=== PATIENT | male | born 1950 | race Caucasian/White ===

== ENCOUNTER 2021-02-02 16:10 | Emergency (ER) | payer OTHER ==
[~2021-02-02] VITALS: Ht 167.6 cm; Wt 88.5 kg
[2021-02-02 21:49] VITALS: BP 150/62
== END 2021-02-02 20:55 ==
LOC: ER 16:10
PROVIDERS: Nurse Practitioner
DX: F91.9 Conduct disorder, unspecified (principal); Z20.822 Contact with and (suspected) exposure to COVID-19; F17.210 Nicotine dependence, cigarettes, uncomplicated; Z88.2 Allergy status to sulfonamides; Z88.8 Allergy status to other drugs, medicaments and biological substances

== ENCOUNTER 2021-02-07 12:49 | Inpatient (IN) | payer BC, OTHER ==
[~2021-02-07] VITALS: Ht 170.2 cm; Wt 84.6 kg
[2021-02-07] VITALS (34 sets, daily range): BP systolic 92–167; BP diastolic 39–110
[~2021-02-07 12:49] MED LIST: AMANTADINE 100100 MG PO; ATENOLOL 100MG100 MG PO; FLOMAX0.4 MG PO; FLONASE 0.05%50 MCG NASAL; FOLIC ACID1 MG PO; HYDRALAZINE 5050 MG PO; IRON325 M1 PO; LAMICTAL150 MG PO; LOPID600 MG PO; LOSARTAN POTAS100 MG PO; MULTI VITAMIN1 EACH PO; NORVASC10 MG PO; OLANZAPINE7.5 MG PO; TEMAZEPAM30 MG PO; TERAZOSIN HCL10 MG PO; ZYPREXA 5 MG TAB5 M1 PO
--- NOTE | 2021-02-07 19:32 | NUR ---
PT ARRIVED FROM [address] [place] [address] AT 1215 ACCOMPANIED BY NURSING AID, SECURITY AND CABIN WORKER. ON ARRIVAL PT ON FOUR POINT RESTRAINTS CONSTANTLY THRASHING IN BED. PT WAS PLACED IN SYSTEM AT 1250. SPOKE TO DR ORELLANA AT 1253 REGARDING PT'S CURRENT CONDITION AND ORDERS NEEDED. PT STARTED ON PRECEDEX GTT PER ORDER. AT BEDSIDE AT 1700 AND WAS ABLE TO PROVIDE SOME PAST MEDICAL HISTORY.
[2021-02-08] VITALS (40 sets, daily range): BP systolic 112–164; BP diastolic 50–96
[2021-02-08 03:23] LABS: CALCIUM 8.7 mg/dL (8.5-10.1); CREATININE 1.7 mg/dL (0.7-1.3); POTASSIUM 3.6 mmol/L (3.5-5.1)
[2021-02-08 03:26] LABS: HEMATOCRIT 32.3 % (42.0-52.0); MCH 31.8 pg (26.0-34.0); MCV 93.7 fL (80.0-100.0); RBC 3.44 mil/uL (4.50-6.00); RDW 14.1 % (10.5-14.5); WBC 8.4 thou/uL (4.0-11.0)
--- NOTE | 2021-02-08 05:57 | NUR ---
Patient making some progress towards outcome goals. Initially on 4 point soft restraints due to thrashing about in bed despite Precedex max at 1.4mcg/kg/hr., now down to bilarteral soft wrist restraints. Precedex titrated down to 0.5 mck/kg/hr from 1.4 mcg/kg/hr, with scheduled Haldol. Patient drowsy but responds to name and able to follow simple commands. Unaware of where he is, states he remembers not getting any sleep for several days. Kept NPO, oral cares done. IVfluids infusing, good urine output. Patient denies pain. Oxygenation optimal on room air. Vital signs and rhythm stable.
--- NOTE | 2021-02-08 19:30 | NUR ---
alert/oriented x 4, cooperative. precedex off and restraints discontinued at 0830. consumed lunch, fed self. had very large stool. intermittently drowsy, easily awakened. progressing.
[2021-02-09] VITALS (29 sets, daily range): BP systolic 147–192; BP diastolic 63–93
--- NOTE | 2021-02-09 03:32 | NUR ---
PT HAS BEEN CALM AND COOPERATIVE SO FAR ALL SHIFT. HE IS ABLE TO ANSWER ORIENTATION QUESTIONS. DENIES ANY PAIN. HE MAKES HIS NEEDS KNOWN APPROPRIATELY. PT HAS BEEN SLEEPING MOST OF THE NIGHT. RESPIRATIONS EVEN AND UNLABORED. VSS. AFEBRILE. OLIVERA TO DD WITH ADEQUATE URINE OUTPUT. FALL PRECAUTIONS IN PLACE. PROGRESSING TOWARD POC GOALS. WILL CONTINUE TO MONITOR FURTHER.
--- NOTE | 2021-02-09 11:07 | NUR ---
02-09-2021--1110--Text from Dr. Keating with info from Dr. Russ stating that "he looks good, ate well, stopping IVF and returning to some BP meds can DC today or as soon as possible. 02-09-2021--1115-Call to Eugene ([phone]) Her mailbox was full so I called Wanda the ([phone]) and spoke to Eugene. (Wanda is now oin [place] with daughter and son-in-law who is a geriatrics doctor. I told her what was gong on woth her dad (see previous note) and that he is ready for discharge. I explained if she calls me baclk woth facilities around her that have memory care units I can start sending information on the patient to them to see if we can get him accepted. She took my phone number and call me back with suggestions. I will call her back if I don't hear from her by 12:30 this date.
--- NOTE | 2021-02-09 12:55 | NUR ---
02-09-2021--1250--Call to Eugene. She put me on the phone to her . (Eugene was very distressed and crying.) Her gave me the names and numbers for several facilities in their area: [facility]--[phone] [facility]--[phone] [facility]--[phone] [facility]--[phone] He also wanted to know if I could fax the informatiom to the physician in his office who will be seeing the patient. Dr. Miranda--[phone]. I told him I would check woith my supervisor tank house to determine of this is acceptable.
--- NOTE | 2021-02-09 15:38 | NUR ---
02-09-2021--9520--Faxed information to all requested NH from [facility]'s. Information to Dr. Miranda (intended new PCP for Pérez who also is in [facility]'s practice will be sent DC orders when discharged.
--- NOTE | 2021-02-09 18:35 | NUR ---
ASSUMED PATIENT CARE AT 0700. A/O X3. CALM. GOOD APPATITE. NOTED PATIENT BP ELEVATED. MEDS GIVEN. SLOWLY TOWARDS POC GOALS.
[2021-02-10] VITALS (8 sets, daily range): BP systolic 145–178; BP diastolic 65–104
--- NOTE | 2021-02-10 03:03 | NUR ---
PT HAS BEEN SLEEPING MOST OF THE NIGHT. RESPIRATIONS EVEN AND UNLABORED. PT IS ORIENTED TO PERSON, PLACE, AND MONTH. HE WAS UNABLE TO STATE THE DAY OF THE WEEK OR REASON FOR BEING IN THE HOSPITAL. HE DENIES ANY PAIN OR SOA. HTN IMPROVED AFTER SCHEDULED BP MEDICATIONS WERE GIVEN. OLIVERA TO DD WITH GOOD URINE OUTPUT. PT HAS ADEQUATE PO FLUID INTAKE. FALL PRECAUTIONS IN PLACE. PROGRESSING SLOWLY TOWARD POC GOALS. WILL CONTINUE TO MONITOR FURTHER.
--- NOTE | 2021-02-10 04:03 | NUR ---
REPORT CALLED TO IMANI MARTIN ON [facility]. PT TO TRANSFER TO MED/SURG UNIT.
--- NOTE | 2021-02-10 05:17 | NUR ---
Pt transferred from ICU @0510 via bed by 2 staff members. A/OX3, oriented to new room. BP elevated,medicated per EMAR,will monitor effectiveness. Fall precautions in place. Jhaveri patent to DD with light yellow urine. Will continue to monitor pt.
[2021-02-10 10:11] LABS: HEMATOCRIT 35.6 % (42.0-52.0); HEMOGLOBIN 12.1 gm/dL (14.0-18.0); MCH 31.8 pg (26.0-34.0); MCHC 33.9 g/dL (28.0-37.0); MCV 93.7 fL (80.0-100.0); RBC 3.8 mil/uL (4.50-6.00); RDW 14.2 % (10.5-14.5); WBC 8.1 thou/uL (4.0-11.0)
[2021-02-10 10:18] LABS: CALCIUM 9.2 mg/dL (8.5-10.1); CREATININE 1.4 mg/dL (0.7-1.3); MAGNESIUM 1.9 mg/dL (1.8-2.4)
--- NOTE | 2021-02-10 10:25 | NUR ---
02-10-2021--1015--Call from Eugene (MISAEL) with the name of a new facility--[facility] ([phone]). I advised her OI had gotten a ressponse from [facility] and they were an AL facility and could not meet his needs. Call to [facility] to obtain fax number. Not in. Msg. left to return my call.
--- NOTE | 2021-02-10 12:52 | NUR ---
02-10-2021--1250--Faxed information to [facility] in [place], to another [facility] called me about this AM. Waiting for response.
--- NOTE | 2021-02-10 15:22 | NUR ---
ASSUMED CARE OF PT AT 0700 THIS MORNING. PT IS A/OX1 AND DOEN'T FOLLW COMMANDS WELL. PT IS NOT WANTING TO TAKE MEDS OR FOLLOW TX. PT HAS PULLED SECOND IV IN RT FA. PT WILL NOT ALLOW ME TO PLACE A NEW ONE. ASSESSMENTS NOTED IN CHART AND OTHERWISE UNREMARKABLE. PT ALSO REFUSES TO EAT LUNCH. FALL PRECAUTIONS ARE IN PLACE. CALL LIGHT AND OTHER NEEDS ATRE IN PLACE. MEDS AND TX GIVEN NEEDED AND SCHEDULED. WILL MONITOR AND NOTE ANY CHANGES.
--- NOTE | 2021-02-10 15:54 | NUR ---
[facility] social work is following and cont to send out referrals to facility close to [place] and has been communicating with , daughter and son in law.
[2021-02-11 00:05] VITALS: BP 177/97
--- NOTE | 2021-02-11 02:14 | NUR ---
ASSESSED AT START OF SHIFT PT RESTING IN BED. AWAKE AND ALERT TO SELF. TRANSLATION USED. PT IS TURKISH. NEW IV 22G INSERTED IN LFT HAND. FALL PREC IN PLACE. EVENING MEDS GIVEN. AND HYDRALAZINE GIVEN FOR BP. FALL PREC IN PLACE AND CALL LIGHT AT REACH. FREQ ROUNDING DONE. WILL CONT WITH POC TILL EOS.
[2021-02-11 04:21] VITALS: BP 173/92
[2021-02-11 06:46] LABS: HEMATOCRIT 35.1 % (42.0-52.0); MCHC 34.1 g/dL (28.0-37.0); MCV 93.9 fL (80.0-100.0); RBC 3.74 mil/uL (4.50-6.00); RDW 14.3 % (10.5-14.5); WBC 9.4 thou/uL (4.0-11.0)
[2021-02-11 07:01] LABS: CALCIUM 9.3 mg/dL (8.5-10.1); CREATININE 1.6 mg/dL (0.7-1.3); MAGNESIUM 2.1 mg/dL (1.8-2.4); POTASSIUM 4.4 mmol/L (3.5-5.1)
[2021-02-11 08:11] VITALS: BP 162/98
[2021-02-11 08:37] VITALS: BP 161/98
[2021-02-11 08:45] LABS: URINE BILIRUBIN NEGATIVE (Negative); URINE BLOOD TRACE (Negative); URINE CLARITY CLEAR; URINE COLOR YELLOW; URINE GLUCOSE-RANDOM* NEGATIVE (Negative); URINE KETONES 1+ (Negative); URINE LEUKOCYTES-REFLEX NEGATIVE (Negative); URINE NITRITE-REFLEX NEGATIVE (Negative); URINE PROTEIN (DIPSTICK) 1+ (Negative); URINE UROBILINOGEN 0.2 E.U./dl (0.2-1.0)
[2021-02-11 09:01] LABS: HYALINE CASTS 0-3 Few /LPF (None Seen); SQUAMOUS 0-3 Few /LPF (0-3)
[2021-02-11 09:02] LABS: BACTERIA-REFLEX 1-9 Few /HPF (None Seen); CRYSTALS None Seen /LPF (None Seen); URINE RBC 1-2 Rare /HPF (NONE SEEN); URINE WBC-REFLEX 0-5 Rare /HPF (0-5)
--- NOTE | 2021-02-11 12:08 | NUR ---
ASSUMED PT CARE THIS AM. PT IS ALERT TO SELF ONLY. INFORMED DR THAT PT HAS BEEN PULLING IV. PT HAS OLIVERA CATH IN PLACE DUE TO RETENTION. PT IS ON ROOM AIR. COMMUNICATED WITH DR REGARDING CHANGING IV SCHEDULED MEDS TO PO INSTEAD. PT LAST BM WAS ON 02/08. PT WAS WORKING WITH PHYSICAL THERAPY THIS AM AND WALKING WITH GAITBELT AND WALKER TO THE HALLWAY. PT ON THE BED, BED ON THE LOWEST POSITION, SIDE RAILS UP, CALL LIGHT WITHIN REACH. FOLLOW POC.
[2021-02-11 12:25] VITALS: BP 167/100
[2021-02-11 19:48] VITALS: BP 155/85
--- NOTE | 2021-02-11 22:11 | NUR ---
PT WITH HOB ELEVATED. HE TOLD ME HIS NAME AND AGE, BARELY IN A WHISPER. LOOKS SOMNOLENT. HAVING DIFFICULTY SWALLOWING, MEDS SIT IN HIS MOUTH FOR A WHILE.IV FLUIDS INFUSING. FOLLOWS SIMPLE INSTRUCTIONS LIKE SQUEEZING OR SHAKING MY HAND, OCCASIONALLY SMILES, NEEDS ALOT OF PROMPTING. WAS ABLE TO GIVE PO HYDRALAZINE AND HALDOL, HE TOOK A LITTLE BIT OF THICKENED APPLE JUICE. HE NODS YES AND NO TO QUESTIONS. HE DOES NOT LOOK LIKE HE IS IN DISTRESS.HE C/O OF BACK PAIN BY POINTING, REPOSITIONING PROVIDED WITH RELIEF, OLIVERA TO D/D, LIGHT YELLOW OUTPUT. AFEBRILE, ROOM AIR, FALL PREC IN PLACE, FREQ CHECKS PROVIDED.
[2021-02-12 04:00] VITALS: BP 171/90
[2021-02-12 05:40] LABS: HEMATOCRIT 33.8 % (42.0-52.0); HEMOGLOBIN 11.3 gm/dL (14.0-18.0); MCH 31.5 pg (26.0-34.0); MCHC 33.4 g/dL (28.0-37.0); MCV 94.2 fL (80.0-100.0); RBC 3.59 mil/uL (4.50-6.00); RDW 14.5 % (10.5-14.5); WBC 8.6 thou/uL (4.0-11.0)
[2021-02-12 06:38] LABS: CALCIUM 8.8 mg/dL (8.5-10.1); CREATININE 1.7 mg/dL (0.7-1.3); MAGNESIUM 2.2 mg/dL (1.8-2.4); POTASSIUM 4.1 mmol/L (3.5-5.1)
[2021-02-12 07:12] VITALS: BP 154/73
--- NOTE | 2021-02-12 10:13 | NUR ---
ASSUMED PT CARE THIS AM. PT HAS BEEN SLEEPING AND DROWSY THIS AM. WILL RESCHEDULE VIDEO SWALLOW TOMORROW AND INFORMED DR. PT HAS OLIVERA CATH IN PLACE. INFORMED DR REGARDING PT CONDITION AND WILL HOLD PO MED FOR NOW. PT IS NPO. PT HAS IV SITE ON L WRIST RUNNING NS @80ML/HR. PT IS ON ROOM AIR. WILL CONTINUE TO CHECK PT FREQUENTLY.
--- NOTE | 2021-02-12 13:28 | NUR ---
02-12-2021--1215--Call to Eugene re: additional facilities since the list was not faxed to me as I requested. I sent referrals to: [facility]; [facility]; [facility]; [facility]; [facility] [place]; [facility]; [facility] ; [facility]; [facility] I called [facility] to determine if they had received the packet and if they could take patient. No answer. Message left. Waiting on return calls.
--- NOTE | 2021-02-12 14:10 | NUR ---
02-12-2021--Call from [facility] stating [facility] got the fax but needed to know the level of care. Attempted to call them back and no one answered. Call from the senior windows administrator at [facility]. Call attempted and admin. wasn't available. Message left to return my call again.
[2021-02-12 15:42] VITALS: BP 156/84
[2021-02-13] VITALS (8 sets, daily range): BP systolic 148–178; BP diastolic 64–95
--- NOTE | 2021-02-13 02:14 | NUR ---
PT IS SOMNOLENT. TURNS A LITTLE BIT WHEN HIS NAME IS CALLED. ORAL CARE PROVIDED.PT JUST DROOLS, HE DOES NOT SWALLOW HIS OWN SALIVA. ELEVATED BP. PRN HYDRALAZINE GIVEN. CONTINUES ON IVF, OLIVERA TO D/D, REQUIRES REPOSITIONING.AFEBRILE. FREQ CHECKS PROVIDED.
[2021-02-13 06:12] LABS: HEMATOCRIT 34.9 % (42.0-52.0); HEMOGLOBIN 11.3 gm/dL (14.0-18.0); MCH 31.8 pg (26.0-34.0); MCHC 32.4 g/dL (28.0-37.0); RBC 3.56 mil/uL (4.50-6.00); RDW 14.8 % (10.5-14.5); WBC 9.2 thou/uL (4.0-11.0)
[2021-02-13 06:30] LABS: CALCIUM 8.8 mg/dL (8.5-10.1); CREATININE 1.6 mg/dL (0.7-1.3); MAGNESIUM 2.2 mg/dL (1.8-2.4); POTASSIUM 3.9 mmol/L (3.5-5.1)
--- NOTE | 2021-02-13 08:55 | NUR ---
02-13-2021--0845--Call to [facility] for placement--Given marketing managers # [phone]--Not in msg left to return call Call to [facility]--Hip Hop Dance Instructor stated she was just going over the referral with the manager regional. She will call me back Call to [facility]--Spoke to James in marketing--He will look at fax and call me back Call to [facility]--Hip Hop Dance Instructor not in message left to return my call Call to [facility]--Hip Hop Dance Instructor not in--message left to return my call Call to [facility]--No answer--"call cannot be completed at this time" Will call later this date Call to [facility]--Asked for Genesis--She stated she was giving it to her team today and would call me back. Call to [facility]--name changed to [facility]--Not in--Message left to call me back Call to [facility]--Asked for Air Traffic Systems Technician--Not in--No mail box. Call to [facility]--admissions person--in meeting--didn't get the referral another number given--will refax.
--- NOTE | 2021-02-13 13:32 | NUR ---
02-13-2021--1300--Call from [facility] and from [facility]. They can't take him [id number] he requires too much care.
--- NOTE | 2021-02-13 18:30 | NUR ---
PT ASSESSED AT CHANGE OF SHIFT. HAD FALL TRYING TO GET UP OUT OF BED AND WENT DOWN ON KNEES. NO APPARENT INJURY OR C/O PAIN. PT HAD SPEECH THERAPY REEVALUATE HIS SWALLOW AND HE IS TO BE STRICT NPO. PT TURNING HIMSELF OVER IN BED FROM SIDE TO SIDE. SLEEPING MUCH OF TIME. NOT CONVERSANT. UPDATED DAUGHTER ALPHA ON PT CONDITION. DTR STATED DRS HAVE BEEN KEEPING HER INFORMED WELL. POSSIBLE DECISION FOR LUMBAR PUNCTURE.
--- NOTE | 2021-02-14 05:34 | NUR ---
UPON SHIFT REPORT, PT NAKED, NOTED TO BE AWAKE, NONVERBAL, FACE FLUSHED RED. UPON SHIFT ASSESSMENT, PT SLEEPING INTERRUPTED, NOTED TO GO BACK TO SLEEP WITHOUT ISSUE. PT SKIN HOT TO TOUCH, ASSESSED WITH LOW GRADE FEVER. NOTIFIED ONCALL WAITER, RECEIVED ORDERS FOR ONETIME APAP SUPPOSITORY. PT NPO WITH CONTINUOUS IVF. PT WITHOUT NAUSEA OR EMESIS. PT RESTING IN BED THROUGHOUT SHIFT, FREQUENT REPOSITIONING ENCOURAGED. PT NOTED TO SHIFT INDEPENDENTLY. PT ENCOURAGED TO NOTIFY STAFF FOR ALL NEEDS, CALL LIGHT WITHIN REACH, BED ALARM ON, BED LOCKED IN LOWEST POSITION, ROOM REMAINS NEAR NURSES STATION, FREQUENT MONITORING WILL CONTINUE.
[2021-02-14 05:40] LABS: HEMATOCRIT 33.7 % (42.0-52.0); HEMOGLOBIN 11.3 gm/dL (14.0-18.0); MCH 32.2 pg (26.0-34.0); MCHC 33.7 g/dL (28.0-37.0); MCV 95.5 fL (80.0-100.0); RBC 3.52 mil/uL (4.50-6.00); RDW 14.4 % (10.5-14.5); WBC 10.6 thou/uL (4.0-11.0)
[2021-02-14 05:53] LABS: CALCIUM 9.2 mg/dL (8.5-10.1); CREATININE 1.6 mg/dL (0.7-1.3); MAGNESIUM 2.2 mg/dL (1.8-2.4); POTASSIUM 3.7 mmol/L (3.5-5.1)
[2021-02-14 07:38] VITALS: BP 187/121
[2021-02-14 11:57] VITALS: BP 178/96
[2021-02-14 17:20] VITALS: BP 149/76
[2021-02-14 18:13] VITALS: BP 149/76
--- NOTE | 2021-02-14 18:30 | NUR ---
PT ASSESSED AT START OF SHIFT. PT FLUSHED W/ LOW GRADE TEMP. NONVERBAL-NOT ABLE TO FOLLOW COMMANDS. PT TURNS SELF FROM SIDE TO SIDE. DR. RUANO IN EARLY TO SEE PT. CONSULTS ORDERED. NEURO CONSULT DONE PER ZOOM CALL W/ RN AT BEDSIDE AND THEN TALKED W/ DR. RUANO. TELE STARTED THIS AM AND PT IN ST. HAD EEG DONE. PT W/ FINE MOTOR TREMORS THAT STARTED TODAY. PLANS FOR LUMBAR PUNCTURE ON TUESDAY.
[2021-02-14 20:10] VITALS: BP 144/85
[2021-02-14 20:16] LABS: ALBUMIN 3.6 g/dL (3.4-5.0); DIRECT BILIRUBIN < 0.1 mg/dL (<0.1-0.2); SGOT 122 U/L (15-37); SGPT 78 U/L (30-65); TOTAL BILIRUBIN 0.8 mg/dL (0.2-1.0); TOTAL PROTEIN 7.3 g/dL (6.4-8.2)
--- NOTE | 2021-02-14 22:26 | NUR ---
ASSUMED PT CARE AT 1900.PT WAS OBSERVED LYING ON THE BED WITH HIS EYES OPEN.PT AWAKE BUT NON VERBAL.FINE MOTOR TREMORS NOTED.RED RASH ON HIS FACE.PT'S HR WAS IN THE HIGH 140'S BEFORE SHIFT CHANGE.HR WENT UP SOME MORE TO HIGH 150'S -160'S.PT HAS NOT BEEN ABLE TO EAT OR DRINK AND HAS NOT BEEN TAKING HIS PO MEDS.PLATE CLEANER ON DUTY WAS NOTIFIED,ORDER NOTED FOR EKG AND WAS CARRIED OUT.PER REPORT,PT HAS BEEN HAVING FEVER SINCE YESTERDAY.LOW GRADE TEMP NOTED AT SHIFT CHANGE.PT WAS TRANSFERRED TO WITH HIS BELONGINGS WHEN THE RESULT OF THE EKG CAME BACK.
[2021-02-14 23:31] LABS: URINE BILIRUBIN NEGATIVE (Negative); URINE BLOOD 1+ (Negative); URINE CLARITY CLEAR; URINE COLOR YELLOW; URINE GLUCOSE-RANDOM* NEGATIVE (Negative); URINE KETONES 1+ (Negative); URINE NITRITE-REFLEX NEGATIVE (Negative); URINE PROTEIN (DIPSTICK) 1+ (Negative); URINE SPECIFIC GRAVITY 1.025 (1.005-1.035)
[2021-02-14 23:43] LABS: URINE LEUKOCYTES-REFLEX 1+ (Negative)
[2021-02-14 23:45] LABS: HYALINE CASTS 0-3 Few /LPF (None Seen); MUCUS 0-3 Light strn/LPF (None Seen); SQUAMOUS None Seen /LPF (0-3); WBC CASTS 0-3 Few /LPF (None Seen)
[2021-02-14 23:46] LABS: BACTERIA-REFLEX 1-9 Few /HPF (None Seen); COARSE GRANULAR CASTS 0-3 Few /LPF (None Seen); CRYSTALS None Seen /LPF (None Seen); URINE RBC 1-2 Rare /HPF (NONE SEEN); URINE WBC-REFLEX 6-15 Few /HPF (0-5)
--- NOTE | 2021-02-15 01:29 | NUR ---
PT TRANSFERRED FROM 4S TO ROOM 202 AT AROUND 2030, PT IS NON-VERBAL HR IN THE 170S, TEMP 99.5, PT GIVEN CARDIZEM BOLUS THEN STARTED ON CARDIZEM GTT, PT TOLERATED WELL, PT GIVEN TYL FOR TEMP, FLUSHED FACE WITH RUSHES NOTED, PROVIDER AWARE, LABS NOTED, NEW ORDERS NOTED, LAB CULTURES DRAWN, STARTED ON IV ABX, ASSESSMENTS CHARTED, PT ATTEMPTING TO CLIMB OUT OF BED, PT CONVERTED TO SR WITH HR IN THE LOW 100S, REMAINS ON CARDIZEM GTT AT 15ML/HR, BP STABLE, WILL CONTINUE TO MONITOR CLOSELY AND FOLLOW POC
[2021-02-15 04:04] LABS: CREATININE 1.8 mg/dL (0.7-1.3); POTASSIUM 3.2 mmol/L (3.5-5.1)
[2021-02-15 04:42] VITALS: BP 141/70
[2021-02-15 04:45] LABS: ABSOLUTE NEUTROPHILS 10.3 thou/uL (1.4-8.2); BASOPHILS 0.7 % (0.0-2.0); EOSINOPHILS 0.5 % (0.0-3.0); HEMOGLOBIN 11.1 gm/dL (14.0-18.0); LYMPHOCYTES 3.5 % (24.0-44.0); MCH 32.9 pg (26.0-34.0); MCHC 34.8 g/dL (28.0-37.0); MCV 94.5 fL (80.0-100.0); MONOCYTES 7.5 % (1.0-8.0); PLATELET COUNT 333 thou/uL (150-400); POLYS 87.8 % (36.0-66.0); RBC 3.39 mil/uL (4.50-6.00); RDW 14.7 % (10.5-14.5); WBC 11.7 thou/uL (4.0-11.0)
[2021-02-15 07:38] VITALS: BP 141/89
[2021-02-15 11:41] VITALS: BP 125/83
[2021-02-15 15:24] VITALS: BP 138/84
[2021-02-15 19:26] VITALS: BP 164/87
[2021-02-15 23:38] VITALS: BP 137/87
[2021-02-16 01:06] LABS: HIV ANTIBODY Non Reactive (Non Reactive)
[2021-02-16 04:40] VITALS: BP 139/75
--- NOTE | 2021-02-16 06:28 | NUR ---
PT REMAINS NPO, WITH ORAL CARE NEEDED, REPOSITIONING NEEDED, REMAINS RESPONSIVE TO PAIN ONLY, NOT FOLLOWING COMMANDS, PLAN MRI AND SPINAL TAP TODAY, VSS, FLUIDS INFUSING AND OLIVERA WITH YELLOW URINE OUTPUT, REASSMENTS REMAIN UNCHANGED FROM ORIGINAL ASSESSMENT, CON'T TO MONITOR PER PPOC.
--- NOTE | 2021-02-16 07:31 | EKG ---
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 : 1950 Requested By: Pearl Rasmussen Order Number: [id number] : Luis Enrique Valdez Measurements Intervals [place] Rate: 164 P: [place]: QRS: 62 QRSD: 106 T: -27 QT: 302 QTc: 499 Interpretive Statements Atrial fibrillation with rapid V-rate Probable left ventricular hypertrophy Repolarization abnormality, prob rate related Artifact in lead(s) I,II,III,aVR,aVL,aVF,V1,V2,V4,V6 No previous ECG available for comparison Electronically Signed On 02-16-2021 7:31:10 CDT by Luis Enriuqe Valdez [email or web address] <ELECTRONICALLY SIGNED> By: Luis Enrique Valdez MD, FACC 02/16/21 0731 09 09 Luis Enrique Valdez MD, FACC /EPI
--- NOTE | 2021-02-16 07:33 | EKG ---
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 : 1950 Requested By: Russell Pearson Order Number: [id number] MD: Luis Enrique Valdez Measurements Intervals [place] Rate: 148 P: TN: QRS: 63 QRSD: 88 T: 267 QT: 311 QTc: 489 Interpretive Statements Atrial fibrillation Consider left ventricular hypertrophy Repolarization abnormality, prob rate related Compared to ECG 02/14/2021 20:10:18 No significant changes Electronically Signed On 02-16-2021 7:32:42 CDT by Luis Enrique Valdez [email or web address] <ELECTRONICALLY SIGNED> By: Luis Enrique Valdez MD, [facility] 02/16/21 0732 1150 1150 Luis Enrique Valdez MD, FACC /EPI
--- NOTE | 2021-02-16 07:50 | NUR ---
02-16-2021--0750-Call to Karthik Quiroz--from [place]--Call returned to him--ms left to return call.
[2021-02-16 09:19] VITALS: BP 157/91
[2021-02-16 10:24] LABS: HEMATOCRIT 35.1 % (42.0-52.0); HEMOGLOBIN 11.7 gm/dL (14.0-18.0); MCH 31.8 pg (26.0-34.0); MCHC 33.4 g/dL (28.0-37.0); MCV 95.4 fL (80.0-100.0); RBC 3.68 mil/uL (4.50-6.00); RDW 14.7 % (10.5-14.5); WBC 12.4 thou/uL (4.0-11.0)
[2021-02-16 10:26] LABS: CALCIUM 9.1 mg/dL (8.5-10.1); CREATININE 1.6 mg/dL (0.7-1.3); MAGNESIUM 2.1 mg/dL (1.8-2.4); POTASSIUM 3.6 mmol/L (3.5-5.1)
[2021-02-16 10:30] LABS: INR 1.07; PROTIME 11.6 Seconds (10.5-12.1)
--- NOTE | 2021-02-16 10:43 | 2DMMODE ---
[facility] [place] [address] 2 D/M-MODE ECHOCARDIOGRAM Name: ANGELLA POTTS Room #: 202-P ADM IN M.R.#: [id number] Admission: 02/07/21 Attend Phys: Aruna Sousa MD Discharge: Date of : 48 Report #: [id number] THIS REPORT FOR: cc: FAM - Family physician unknown FAM - Family physician unknown Luis Enrique Valdez MD [facility] ~ APPROVED REPORT Study performed: 02/16/2021 10:03:25 EXAM: Comprehensive 2D, Doppler, and color-flow Echocardiogram Patient Location: Bedside Room #: 202 Status: routine BSA: 1.88 HR: 59 bpm BP: 157/91 mmHg Rhythm: NSR Other Information Study Quality: Poor Technically limited study due to uncooperative patient. Indications Afib 2D Dimensions IVSd: 13.69 (7-11mm) LVDd: 37.63 mm PWd: 10.98 (7-11mm) LVDs: 25.42 (25-40mm) Aortic Valve AoV Peak Charles.: 2.12 m/s AO Peak Gr.: 17.99 mmHg LVOT Max P.52 mmHg AO Mean Gr.: 8.48 mmHg AO V2 Mean: 1.36 m/s LVOT Max V: 1.46 m/s AO V2 VTI: 31.63 cm Mitral Valve E/A Ratio: 0.6 MV Decel. Time: 171.27 ms MV E Max Charles.: 0.91 m/s [facility] [address] [place] [address] 2 D/M-MODE ECHOCARDIOGRAM Name: ANGELLA POTTS Room #: 202-P ADM IN M.R.#: [id number] Admission: 02/07/21 Attend Phys: Aruna Sousa MD Discharge: Date of : 48 Report #: [id number] A Charles.: 1.43 m/s MV PHT: 49.67 ms Tricuspid Valve TR Peak Charles.: 2.39 m/s RAP Estimate: 5.00 mmHg TR Peak Gr.: 23.00 mmHg PA Pressure: 28.00 mmHg Left Ventricle The left ventricle is normal size. Mild concentric left ventricular hypertrophy. Left ventricular systolic function is normal. LVEF is 60%. Mild diastolic dysfunction is present (impaired relaxation pattern). Right Ventricle The right ventricle is normal size. The right ventricular systolic function is normal. Atria Left atrium is mildly dilated. The right atrium size is normal. Aortic Valve The aortic valve is not well visualized. No aortic regurgitation is present. There is no aortic valvular stenosis. Mitral Valve The mitral valve is normal in structure. There is mitral annular calcification. Trace mitral regurgitation. No evidence of mitral valve stenosis. Tricuspid Valve The tricuspid valve is normal in structure. Trace tricuspid regurgitation. Estimated PAP is 28mmHg. Pulmonic Valve Pulmonic valve is not well visualized. Great Vessels The aortic root is normal in size. Ascending aorta is not well visualized. IVC is normal in size and collapses >50% with inspiration. Pericardium [facility] [address] [place] [address] 2 D/M-MODE ECHOCARDIOGRAM Name: KATLYNANGELLA Room #: 202-P [facility] IN M.R.#: [id number] Admission: 02/07/21 Attend Phys: Aruna Sousa MD Discharge: Date of : 48 Report #: [id number] <Conclusion> Normal left ventricle size with mild concentric hypertrophy Ejection fraction 60% Normal right ventricular size/function Left atrium mildly dilated Aortic valve not well seen but there are no obvious valvular dysfunction Mild to moderate mitral annular calcification, no stenosis detected Trace tricuspid valve insufficiency, pulmonary systolic pressure estimated 28 mmHg Normal aortic root size No pericardial effusion <ELECTRONICALLY SIGNED> By: Luis Enrique Valdez MD, FACC 02/16/213 42 42 Luis Enrique Valdez MD, FACC /INF
--- NOTE | 2021-02-16 11:35 | NUR ---
Nutrition: Vitamin D 35.3. Rec vitamin D supplementation.
[2021-02-16 12:26] VITALS: BP 149/92
--- NOTE | 2021-02-16 13:06 | NUR ---
02-16-2021--1200--Call from Karthik Quiroz requesting daughters call him, James. He said if the patient goes on Hospice they can take him as ther would be additional help. He wants to explain this to the family himself. Call from Eugene wanting to know who could fill out her mother's [facility] paperwork. I asked Dr. Maya and he said he would do it and to bring them when they come on . She also gave me approx. 10 more facilities to fax information to. Paperwork faxed to facilities and Eugene was given the number for James at [facility]. Facilities fax sent to: [facility] She will call me back if they choose [facility].
--- NOTE | 2021-02-16 13:32 | NUR ---
02-16-2021--1330--Call from [facility] in [place]. They denied placememt.
[2021-02-16 15:04] LABS: CSF GLUCOSE 75 mg/dL (40-70); CSF PROTEIN 48 mg/dL (15-45)
[2021-02-16 16:00] VITALS: BP 133/82
[2021-02-16 17:09] LABS: CSF CLARITY CLEAR; CSF COLOR COLORLESS; CSF RBC 20 /mm3; CSF WBC 0 /mm3 (0-10); VOLUME 12 ml
[2021-02-16 19:17] VITALS: BP 143/87
[2021-02-16 22:06] LABS: SYPHILIS AB Non Reactive (Non Reactive)
[2021-02-17] VITALS (8 sets, daily range): BP systolic 126–155; BP diastolic 70–96
[2021-02-17 06:03] LABS: CALCIUM 8.6 mg/dL (8.5-10.1); CREATININE 1.6 mg/dL (0.7-1.3); MAGNESIUM 1.9 mg/dL (1.8-2.4); POTASSIUM 3.4 mmol/L (3.5-5.1)
--- NOTE | 2021-02-17 08:23 | NUR ---
ASSUME CARE 1900. PT/VITALS STABLE. A/O TO PERSON ONLY. AT START OF SHIFT PT COULD ANSWER TO NAME BUT DID NOT FOLLOW COMMANDS. BY 0400, PT COMMUNICATED HE WANTED TO STAND UP, AND WANTED SOMETHING TO EAT. HE WAS FED SOME YOGURT AT 0530 WHICH HE ATE WELL WITH NO CHOKING. UP THIS THIS MORNING, PT SEEMS TO COMMUNICATE SOME NEEDS. INDICATED HE WANTED WATER AND ASKED WHAT WAS ON HIS BREAKFAST TRAY. MY GUESS IS PT SNAPS IN AND OUT OF ORIENTATION. NO APPARENT PAIN NOTED. TURNS SELF IN BED. IMPULSIVE/RESTLESS. MOST OFTEN. ST ON MONITOR IN LOW 100s, BUT RTE INCREASES WITH MOVEMENT. ASSESSMENT CHARTED. PROGRESSING POORLY WITH POC. PLAN IS TO CONITNUE WITH ABX AND ANTIVIRAL THERAPY, MONITOR LOC AND CM FOR DISCHARGE [place]. WILL CONTINUE TO MONITOR AND FOLLOW WITH POC
[2021-02-17 10:24] LABS: HEMATOCRIT 33.9 % (42.0-52.0); HEMOGLOBIN 11.4 gm/dL (14.0-18.0); MCH 31.9 pg (26.0-34.0); MCHC 33.6 g/dL (28.0-37.0); RBC 3.57 mil/uL (4.50-6.00); RDW 14.4 % (10.5-14.5); WBC 10.1 thou/uL (4.0-11.0)
--- NOTE | 2021-02-17 13:25 | NUR ---
02-17-2021--1145--Call from Health system. I received a message from Marifer and returned her call. She stated they would have to "pass" on admitting the patient due to care needs.
--- NOTE | 2021-02-17 15:45 | NUR ---
02-17-2021--3984--Call to [facility] ([phone]) to ask if they (daughter--Wanda; son-in-law Dr. Campos; and patient's daughter, Eugene) can be available for a meeting on 02-19-2021--@ 11:[address] Maya, Dr. Irwin, and nephrology social worker from [facility]. No answer. Message left and I asked her to leave me a msg re: their availibiliy. Waiting for call.
--- NOTE | 2021-02-17 16:03 | EKG ---
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: JOSIE : 1950 Requested By: Deshawn Irwin Order Number: [id number] MD: Luis Enrique Valdez Measurements Intervals [place] Rate: 122 P: [place]: QRS: 56 QRSD: 87 T: 45 QT: 308 QTc: 439 Interpretive Statements Atrial fibrillation Compared to ECG 02/15/2021 11:50:35 Early repolarization no longer present Electronically Signed On 02-17-2021 16:03:13 CDT by Luis Enrique Valdez [email or web address] <ELECTRONICALLY SIGNED> By: Luis Enrique Valdez MD, [facility] 02/17/21 1603 1448 1448 Luis Enrique Valdez MD, FACC /EPI
--- NOTE | 2021-02-17 16:18 | NUR ---
I have reviewed the documentation by ANGELA RODRIGUEZ from 02/17/21 to 02/17/21 and I concur with it. BRANDY ROTHMAN
--- NOTE | 2021-02-17 19:56 | NUR ---
took over care for patient at 0700. patient continues to have AFIB WITH RVR. informed ni of patient afib with rvr; rates 130-170's; ordered to start cardizem drip and titrate as necessary. called cardiology; spoke to Pearl, Nurse Practitioner; she stated to called dr. riley. administered PRN metoprolol and hydralazine; no improvements seen in rate. Dr. riley came and saw the patient; added new orders for amiodaron bolus and amiodarone drip. patient heart rate responding to amiodarone; heart rate 110's. patient alert and orientated to self, responds to verbal and tactile stimuli. often confused and impulsive. patient denies any needs at this time. spoke with family today and provided updates.
[2021-02-18 04:00] VITALS: BP 137/77
[2021-02-18 05:28] LABS: HEMATOCRIT 31.1 % (42.0-52.0); MCH 33.1 pg (26.0-34.0); MCHC 35.2 g/dL (28.0-37.0); MCV 93.9 fL (80.0-100.0); RBC 3.31 mil/uL (4.50-6.00); WBC 8.1 thou/uL (4.0-11.0)
[2021-02-18 05:34] LABS: CALCIUM 8.5 mg/dL (8.5-10.1); CREATININE 1.5 mg/dL (0.7-1.3); MAGNESIUM 1.8 mg/dL (1.8-2.4); POTASSIUM 3.1 mmol/L (3.5-5.1)
--- NOTE | 2021-02-18 05:36 | NUR ---
NO SIGNIFICANT CHANGES DURING THE SHIFT. PT SLEPT MOST OF THE NIGHT, BUT WAS OFTEN RESTLESS IN THE BED IN HIS SLEEP. PT TOOK HIS PILLS WELL AT BEDTIME. HR WELL CONTROLLED WITH AMIO DRIP. SR/ST MOST OF THE NIGHT WITH SOME PERIODS OF AFIB. BP STABLE. GOOD UO VIA OLIVERA. LOTION APPIED TO DRY, FLAKEY SKIN. FALL PRECAUTIONS IN PLACE. PROGRESSING SLOWLY TOWARD POC GOALS. WILL GIVE REPORT TO ONCOMING NURSE.
--- NOTE | 2021-02-18 07:10 | NUR ---
02-18-2021--0710--Msg from daughter stating she isn't sure about the meeting as she isn't sure what time they will be in town. Attempted to call her and there was no answer. Will attempt call later this date.
[2021-02-18 07:55] VITALS: BP 161/96
[2021-02-18 11:07] VITALS: BP 164/90
--- NOTE | 2021-02-18 14:57 | NUR ---
02-18-2021--8805--Call to patient's daughter to let her kmow meeting time was changed to 1600 on 02-19-2021. Alisha (LUISANA) and I talked to her re: how they are planning to pay for senior care. Daughter states they have a house (they plan to sell) and a couple of cars (they also plan to sell these). Discussed Hospice with her and she said she would talk to the doctors tomorrow. She states they cannot private pay and LUISANA offered to enroll him in [employer] which would start the process for [place] Medicaid. Alpha was agreeable to this.
[2021-02-18 15:04] VITALS: BP 145/92
--- NOTE | 2021-02-18 18:25 | NUR ---
ASSESSMENT CHARTED - MEDS PER JUN - MEDS CRUSHED AND GIVEN TO PATIENT IN APPLESAUCE/ PUDDING. PT SUPPLEMTED WITH K+ AND MG THIS SHIFT. SEEN BY PT AND OT. PT UP ON THE SIDE OF THE STOOD WITH ASSIST. PHYS THERAPIST STATED PT DID WELL. ACCUCHECKS CHARTED - PT VERO DIET AND FLUIDS - HAS BEEN FEEDING HIMSELF WITH [employer]PER[employer]. 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 THEY HAD A LENGTHY CONVERSTAION WHERE LUIZ ( GLASS MOLD REPAIRER) STATED THE PT VERY COHERANT. PT WITH NO CO'S AT THE PRESENT TIME. RESTING IN BED.
[2021-02-18 20:45] VITALS: BP 148/80
[2021-02-19 03:44] LABS: HEMATOCRIT 29.5 % (42.0-52.0); HEMOGLOBIN 10.2 gm/dL (14.0-18.0); MCH 32.4 pg (26.0-34.0); MCHC 34.6 g/dL (28.0-37.0); MCV 93.7 fL (80.0-100.0); RBC 3.14 mil/uL (4.50-6.00); RDW 14.3 % (10.5-14.5); WBC 7.4 thou/uL (4.0-11.0)
[2021-02-19 04:45] VITALS: BP 152/85
[2021-02-19 05:37] LABS: CALCIUM 8.3 mg/dL (8.5-10.1); CREATININE 1.4 mg/dL (0.7-1.3); MAGNESIUM 2.2 mg/dL (1.8-2.4); POTASSIUM 3.5 mmol/L (3.5-5.1)
[2021-02-19 07:56] VITALS: BP 163/95
[2021-02-19 11:46] VITALS: BP 142/85
--- NOTE | 2021-02-19 12:12 | NUR ---
Referrals have been sent to the following [place] Facilities: [facility] Facilities: [facility]
[2021-02-19 15:07] VITALS: BP 136/82
[2021-02-19 15:13] VITALS: BP 132/93
--- NOTE | 2021-02-19 17:06 | NUR ---
SW participated in a meeting with the Pt, Eugene, and Leif. Dr. Snow and Dr. Pratt were also a part of the meeting. An update on the Pt was given. Pt is improving and may be ready for discharge next week. Placement was discussed. LUISANA explained LUISANA Bessy has looked for placement in [place] however has been unable to locate any facility willing to accept. LUISANA explained it would be more feasible to find placement in [place] then working on getting Pt to [place] once more stable. The family confirmed they are working with [employer] to complete a [place] medicaid application. Family was in agreement to placement in [place]. There were no other questions or concerns at this time. Pt will need a skilled to LTC. SW will continue to send out referrals.
--- NOTE | 2021-02-19 19:29 | NUR ---
ASSESSMENT CHARTED - MEDS PER JUN - SEEN BY SPEECH THERAPY AT [facility] - PT ADVANCED TO MECHANICAL CHOPPED DIET AND THIN LIQUIDS . VERO SMALL AMOUNT OF DIET AND LIQUIDS. ACCUCHECKS SHARTED - NO COVERAGE REQUIRED. SEEN BY PHYS AND OCC THERAPY. FAMILY IN FROM [facility] TO SEE PT TODAY AND HAVE MEETING WITH DOCTORS TO THE DISPOSITION OF PATIENT FROM HOSPTIAL. PT UP TO THE CHAIR - SAT FOR MOST OF THE AFTERNOON. PT WITH NO CO'S AT HE PRESENT TIME. APPEARS TO BE RESTING COMFORTABLY.
[2021-02-19 20:02] VITALS: BP 160/74
[2021-02-20 03:27] LABS: HEMATOCRIT 28.2 % (42.0-52.0); HEMOGLOBIN 9.9 gm/dL (14.0-18.0); MCH 32.7 pg (26.0-34.0); MCHC 34.9 g/dL (28.0-37.0); MCV 93.5 fL (80.0-100.0); RBC 3.02 mil/uL (4.50-6.00); RDW 13.8 % (10.5-14.5); WBC 6.8 thou/uL (4.0-11.0)
[2021-02-20 03:43] LABS: CALCIUM 8.3 mg/dL (8.5-10.1); CREATININE 1.3 mg/dL (0.7-1.3); MAGNESIUM 1.9 mg/dL (1.8-2.4); POTASSIUM 3.5 mmol/L (3.5-5.1)
[2021-02-20 04:28] VITALS: BP 146/71
--- NOTE | 2021-02-20 04:39 | NUR ---
ASSUMED CARE OF PT AT 1900. PT IS ALERT AND ORIENTED, HAS A COMMUNICATION BARRIER, BUT FOLLOWS COMMANDS APPROPRIATELY. PT RESTED IN ROOM THROUGHOUT THE NIGHT WITH NO COMPLAINTS, VSS. NO PAIN VERBALIZED, PT DID NOT GET OUT OF BED THROUGHOUT THE NIGHT, AMBULATES X1 WITH A WALKER PER AM RN. PLAN IS TO GO TO [place] WITH FAMILY AT SOME POINT AT DISCHARGE. WILL CONTINUE TO MONITOR.
[2021-02-20 07:15] VITALS: BP 135/73
[2021-02-20 10:17] LABS: T-SPOT.TB Negative
[2021-02-20 11:10] VITALS: BP 110/65
[2021-02-20 15:15] VITALS: BP 128/68
[2021-02-20 20:15] VITALS: BP 131/70
[2021-02-20 23:47] VITALS: BP 143/83
--- NOTE | 2021-02-21 00:04 | NUR ---
UPON SHIFT REPORT, PT SITTIG UPRIGHT IN HOSPITAL BED, WATCHING TV. UPON SHIFT ASSESSMENT, PT AOX4, RESPONDING TO ORIENTATION PROMPTS APPROPRIATELY, OTHERWISE CALM AND COOPERATIVE. PT DENIES PAIN AND SOB WHILE ON ROOM AIR. PT TOLERATING PO INTAKE OF FLUIDS AND HEART HEALTHY DIET WITHOUT ISSUE. PT WITHOUT NAUSEA OR EMESIS. PT AMBULATING WITH X1 ASSIST, GAIT BELT AND WALKER TO BEDSIDE COMMODE, OTHERWISE VOIDING PER URINAL. PT RESTING IN BED THROUGHOUT SHIFT, FREQUENT REPOSITIONING ENCOURAGED WHILE IN BED, PT NOTED TO SHIFT SLIGHTLY, REFUSING REPOSITIONING ASSISTANCE. PT ENCOURAGED TO NOTIFY STAFF FOR ALL NEEDS, CALL LIGHT WITHIN REACH, BED ALARM ON, BED LOCKED IN LOWEST POSITION, ROOM NEAR NURSES STATION, FREQUENT MONITORING WILL CONTINUE.
[2021-02-21 04:45] VITALS: BP 128/71
[2021-02-21 07:10] VITALS: BP 106/61
[2021-02-21 10:45] VITALS: BP 115/58
[2021-02-21 14:55] VITALS: BP 115/66
[2021-02-21 19:00] VITALS: BP 141/68
--- NOTE | 2021-02-21 19:28 | NUR ---
PT IS AXOX4, PLEASANT. VSS, AFEBRILE, SR ON THE MONITOR. DENIES PAIN. PT HAS BEEN SITTING IN CHAIR FOR MOST OF DAY, ABLE TO TAKE MEALS AND FEED HIMSELF. TOLERATING MECH CHOPPED AND THIN LIQUIDS, TAKES MEDS WHOLE WITH WATER. PT FAMILY AT THE BEDSIDE THIS PM. PT HAS C/O DRY ITCHY SKIN. LOTION PROVIDED. POC IS TO CONTINUE CARDIO RX, MONITOR VS BP/HR, ANTIVIRAL IV. PT/OT CONSULTED. PT UP WITH GB AND WALKER. FALL PRECAUTIONS IN PLACE. NO CONCERNS AT THIS TIME.
[2021-02-21 23:38] VITALS: BP 136/56
--- NOTE | 2021-02-22 03:35 | NUR ---
RECEIVED THE PATIENT ALERT AND ORIENTED X4.ON ROOM AIR BREATHING SPONTANEOUSLY.NOT IN PAIN OR DISTRESS.FALL PREVENTION MEASURES MAINTAINED.SEIZURE PRECAUTION IN PLACE.ALL NEEDS ATTENDED.
[2021-02-22 04:00] VITALS: BP 144/75
[2021-02-22 07:13] VITALS: BP 125/61
[2021-02-22 11:48] VITALS: BP 129/68
[2021-02-22 15:21] VITALS: BP 136/75
[2021-02-22 18:58] VITALS: BP 136/77
--- NOTE | 2021-02-22 19:47 | NUR ---
PT IS AXOX4, PLEASANT; ABLE TO ANSWER QUESTIONS APPROPRIATELY THROUGHOUT THE DAY. VSS, AFEBRILE, SR ON THE MONITOR. PT UP TO CHAIR MOST OF DAY FOR MEALS. PT HAS PERSONAL ITEMS WITHIN REACH, AND NEEDS WERE MET THROUGHOUT THE SHIFT. DR CUMMINGS CONSULTED. POC IS TO CONTINUE CONSULT WITH DR STEVENSON, CASE MGMT, WITH PLAN OF DC TO SNF. PT TOLERATING DIET WELL, ABLE TO FEED SELF WITH NO ISSUES. WILL CONTINUE TO MONITOR VS, LORRI HR/BP. FALL PRECAUTIONS IN PLACE. NO CONCERNS AT THIS TIME.
[2021-02-23 03:33] VITALS: BP 126/62
--- NOTE | 2021-02-23 04:45 | NUR ---
PT LYING IN BED. VOIDING PER URINAL. DENIES PAIN. RESTING COMFORTABLY. NO NEEDS VOICED. CALL LIGHT WITHIN REACH. FREQUENT OBSERVATION.
[2021-02-23 08:00] VITALS: BP 127/71
[2021-02-23 12:26] VITALS: BP 130/73
[2021-02-23 16:27] VITALS: BP 151/79
--- NOTE | 2021-02-23 18:05 | NUR ---
PATIENT IS A/OX3, VSS AFEBRILE. SR ON MONITOR. DR. STEVENSON CONSULTED AND FILLED OUT PAPERWORK FOR FAMILY. UPWARD BOUND DIRECTOR CONSULTED TO HELP WITH MEDICAID. PATIENT HAS BEEN UP IN CHAIR MOST OF THE DAY, TRANSFERS WITH 1-2 STAFF WALKER AND GAITBELT.FALL PRECAUTIONS IN PLACE. DENIES PAIN AT THIS TIME. NO CONCERNS AT THIS TIME
[2021-02-23 19:26] VITALS: BP 136/67
--- NOTE | 2021-02-24 04:02 | NUR ---
RECEIVED PATIENT AT 1900H.PATIENT IS ALERT AND ORIENTEDX4.ON ROOM AIR BREATHING SPONTANEOUSLY.NOT IN PAIN OR DISTRESS.PATIENT REFUSED NIGHT DOSE OF LAXATIVES HE HAD BOWEL MOEVEMENT ALREADY.ALL NEEDS ATTENDED.TO CONTINOUSLY MONITOR.
[2021-02-24 04:16] VITALS: BP 138/64
[2021-02-24 08:40] VITALS: BP 118/64
--- NOTE | 2021-02-24 11:47 | NUR ---
TOOK OVER CARE OF THIS PATIENT AT 0700. PATIENT SLEEPING IN BED COMFORTABLY. ASSISTED PATIENT TO CHAIR FOR BREAKFAST USING WALKER AND GAIT BELT. PATIENT NEEDS SBA WITH WALKER AND SET-UP TRAY. PATIENT HAS BEEN TALKING WITH FAMILY THROUGHOUT THE DAY. DENIES ANY PAIN, CHEST PAIN, SOA, DIZZINESS, FATIGUE, OR NAUSEA AND VOMITING. PATIENT DENIES ANY NEEDS. CALL LIGHT AND PERSONAL ITEMS WITHIN REACH. FALL PRECAUTIONS IN PLACE. WILL CONTINUE TO MONITOR.
[2021-02-24 12:22] VITALS: BP 123/58
[2021-02-24 13:23] VITALS: BP 147/69
--- NOTE | 2021-02-24 14:51 | NUR ---
ASSUMED PT CARE UPON TRANSFER TO UNIT AROUND 1300. PATIENT ORIENTED TO ROOM, RESTING IN CHAIR AT THIS TIME. PATIENT REMAINS CONTINENT, AND IS UP TO BATHROOM WITH ASSIST. FALL PRECAUTIONS ARE IN PLACE, CALL LIGHT WITHIN REACH.
[2021-02-24 19:42] VITALS: BP 146/69
--- NOTE | 2021-02-25 03:17 | NUR ---
Assumed pt care at 1900. A/OX4,busy listening to music on ipad/phone at HS. Denies pain on assessment. VSS. Stated he had a Bm earlier and declined Miralax. Up with AX1 RW/GB. Continent of B&B at night. Calls approp for help. Fall precautions in place,will continue to monitor pt.
[2021-02-25 07:00] VITALS: BP 142/63
[2021-02-25 12:00] VITALS: BP 140/68
--- NOTE | 2021-02-25 12:37 | NUR ---
ASSUMED CARE AT 0700. PATIENT IS ALERT AND ORIENTED X4. PATIENT DOESN'T TALK MUCH. LUNGS ARE CLEAR. ABD IS SOFT WITH BSX4. PATIENT IS VOIDING VINAY COLORED URINE. PATIENT HAS HX OF FALLS. UP IN THE CHAIR FOR MEALS. S.L. D/C'D. IV ABT DC'D. PATIENT IS UP WITH ONE WITH WALKER TO THE BATHROOM . FALL AND SAFETY PROTOCOL IN PLACE. DENIES PAIN AT THIS TIME. WILL CONTINUE TO MONITER.
[2021-02-25 13:41] LABS: HSV PCR SOURCE CSF
[2021-02-25 16:07] LABS: CSF VDRL Non Reactive (Non Rea:<1:1)
[2021-02-25 17:00] VITALS: BP 138/59
[2021-02-25 20:06] VITALS: BP 148/61
--- NOTE | 2021-02-26 04:44 | NUR ---
Assumed pt care at 1900. A/OX4,pleasant. VSS. Denies pain,N/V on assessment. Up with AX1, RW/GB w/o any problems. Continent of B&B. No IV access,provider aware. Fall precautions in place,calls approp for help,will continue to monitor pt.
[2021-02-26 07:38] VITALS: BP 138/64
[2021-02-26 15:10] VITALS: BP 156/58
--- NOTE | 2021-02-26 15:35 | NUR ---
SW sent to the following: [facility]- [facility]- Declined can't meet Pt's needs [facility]- declined no beds [facility]- declined felt Pt would benefit from a smaller unit [facility]- not in network with Pt's insurance [facility]- declined due to not able to meet need due to staffing issues [facility]
--- NOTE | 2021-02-26 15:39 | NUR ---
LUISANA spoke with Alisha, kim, at [facility]. Alisha stated they are willing to accept the Pt however need a copy of the [place] medicaid application and the [id number]. LUISANA was able to fax the [id number]. LUISANA contacted Genie with [employer] concerning a copy of the mediciad application. Genie tried to email a copy of the application 2x but was unsucessful. LUISANA met with Genie concerning the matter, however the matter was not resloved. Mitch was only able to provide the confirmation page of the application. LUISANA did fax the confirmation page to [facility]. Alisha informed it was not sufficent and they were in need of a copy of the entire application. This issue was escalated up to Cris Mackey and Anel Resendez. LUISANA again spoke with Alisha to inquire if they could accept the Pt as SNF to home. Alisha stated she would speak to her admission team and get back with LUISANA. LUISANA will continue to follow
--- NOTE | 2021-02-26 15:57 | NUR ---
LUISANA was able to contact Eugene concerning the issue with getting the medicaid and placement. LUISANA informed that the Pt may be over resources for medicaid and the family would have to pay out of pocket for LTC. LUISANA informed that the focus for the Pt would need to shift to finding a SNF placement only. LUISANA also informed the Pt is unfunded and discharge would need to be as soon as a SNF is found. LUISANA informed if the family decided to go for LTC they will need to work with SW at the SNF placement. Eugene expressed understanding. SW will continue to look for a SNF placement at this time
--- NOTE | 2021-02-26 16:34 | NUR ---
Alert and orientated X4. Calm and cooperative, compliant. Breath sounds clear. Regular HR auscultated. Color pink with brisk capillary refill and palpable peripheral pulses. Active bowel sounds over soft, rounded abdomen. Yellow urine and soft brown stool per toilet. Ambulates with walker to toilet. Sitting in room and using Ipad. No s/o distress.
[2021-02-26 17:35] VITALS: BP 133/53
[2021-02-26 20:36] VITALS: BP 140/73
--- NOTE | 2021-02-27 04:09 | NUR ---
Assumed care on 02/26/21 @ 1900, in bed, VSS, x1 assist with gait belt to transfer from bed to toilet. Cooperative with care and notably polite with staff. High fall risk, gait belt used when ambulating with [id number] to the toilet. Continent of B&B, soft bm today. HRRR, Breath sounds CTA bilat, ABD N x 4Q. Compliant with medications administration. Denies Pain, shortness of breath, dizziness or N/V. Listening to songs on tablet. Denies additional needs.
--- NOTE | 2021-02-27 11:37 | NUR ---
LUISANA recieved a call from Alisha, , at [facility]. Alisha stated she has spoken with the DON and they are able to accept the Pt for SNF. However not until Tuesday. Discharge was set for 03/02/2021 @ 0900. Pt will be transported via [facility]. LUISANA did call Alpha to inform about the discharge.
[2021-02-27 16:26] VITALS: BP 139/72
[2021-02-27 21:13] VITALS: BP 146/68
--- NOTE | 2021-02-28 04:39 | NUR ---
ASSSUMED CARE OF PT AT 1930. REPOT RECIEVED, ROSALBA ASSESSMENT COMPLETE. PT DENIES ANY PAIN. CLARIFIED HYDRALAZINE ORDERS Randy MORGAN NP. MEDS GIVEN ORDERED. REFILLED WATER. PIV CDI, PATENT AND SALINE LOCKED. DENIES NAY OTHER NEEDS, HOURLY ROUNDING CONTINUING. CALL LIGHT IN REACH.
[2021-02-28 08:10] VITALS: BP 151/64
[2021-02-28 08:21] LABS: HSV 1 DNA None detected
[2021-02-28 08:22] LABS: HSV 2 DNA None detected
--- NOTE | 2021-02-28 15:40 | NUR ---
PT BELONGINGS IN THE BAG WERE FOUND IN ROOM 249 ICU. 4 KEYLA WAS CALLED AND INFORMED ABOUT PT BELONGINGS FOUND ICU. NURSE COMPOSITION MOLDER MORGAN WAS GIVEN THE BELONGINGS TO TAKE IT TO PATIENT ROOM.
[2021-02-28 17:12] VITALS: BP 166/79
--- NOTE | 2021-02-28 18:30 | NUR ---
PT ASSESSED AT START OF SHIFT. DOING MUCH BETTER. UP IN THE CHAIR ALL SHIFT. EATING AND DRINKING VERY WELL. AMBULATING W/ WALKER W/ STANDBY AND DOING WELL. NO C/O PAIN. VERBAL INTERACTION VERY CLEAR. PLAN FOR D/C ON TUESDAY PER REPORT.
[2021-03-01 06:02] VITALS: BP 124/55
[2021-03-01 08:30] VITALS: BP 141/73
--- NOTE | 2021-03-01 08:36 | NUR ---
care assumed at 0100. patient was in bed asleep. patient ambulates to the bathroom with steady gaits. patient in bed asleep at this time breathing regullar and unlaboured.
[2021-03-01 15:56] VITALS: BP 141/61
--- NOTE | 2021-03-01 17:32 | NUR ---
PT ASSESSED AT START OF SHIFT. PT DOING BETTER. AND DAUGHTER IN FOR VISIT. PT HAD LARGE BM. UP IN THE CHAIR ALL DAY. SEVERAL BAGS OF BELONINGS AND SET OF CLOTHES FOR PT TO WEAR FOR SKILLED VISIT STARTING TUESDAY AM.
[2021-03-01 20:20] VITALS: BP 140/54
[2021-03-02 04:49] LABS: HEMATOCRIT 25.3 % (42.0-52.0); HEMOGLOBIN 8.8 gm/dL (14.0-18.0); MCHC 34.9 g/dL (28.0-37.0); MCV 97.6 fL (80.0-100.0); RBC 2.59 mil/uL (4.50-6.00); RDW 18.5 % (10.5-14.5)
--- NOTE | 2021-03-02 04:51 | NUR ---
ASSUMED CARE AT 1900, PT SLEPT MOST OF THE NIGHT, WILL BE DISCHARGING AT 0900, FAMILY PACKED BELONGINGS, TOILETED NEEDED, COMPPLIANT TO TX, NO ADVERSE REACTION NOTED, BED IN LOW POSITION, CALL LIGHT WITHIN REACH, ICE WATER ON THE BEDSIDE TABLE, WILL CONTINUE TO MONITOR.
[2021-03-02 05:01] LABS: CREATININE 1.6 mg/dL (0.7-1.3); POTASSIUM 3.4 mmol/L (3.5-5.1)
[2021-03-02 05:48] VITALS: BP 150/67
[2021-03-02 07:37] VITALS: BP 143/75
[2021-03-02] MEDS ORDERED: FLOMAX0.4 MG PO (09:12)
[2021-03-02] MEDS ORDERED: HYDRALAZINE 5050 MG PO (09:12)
[2021-03-02] MEDS ORDERED: PACERONE 200 M200 M1 PO (09:12)
[2021-03-02] MEDS ORDERED: LOPRESSOR50 PO (09:13)
[2021-03-02] MEDS ORDERED: KEPPRA 500 MG500 M1 PO (09:13)
--- NOTE | 2021-03-02 09:36 | NUR ---
Called report to Laura at [phone] All questions and concerns were addressed
--- NOTE | 2021-03-02 09:38 | NUR ---
Patient left [facility] at 0935 with transport via wheelchair.
--- NOTE | 2021-03-02 09:38 | NUR ---
Discharge documents were faxed to [facility]. DIscharge cover sheet and confirmation was placed in Pt's chart.
--- NOTE | 2021-03-04 10:09 | EEG ---
[facility] [place] [address] ELECTROENCEPHALOGRAM Name: LEILA POTTS Room #: 464-P [facility] M.R.#: [id number] Admission: 02/07/21 Attend Phys: Aruna Sousa MD Discharge: 03/02/21 Date of : 48 Report #: [id number] THIS REPORT FOR: //name// DATE OF SERVICE: 02/18/2021 This patient is being evaluated for altered mental status. EEG was done by placing the electrode by standard 10-20 system of electrode placement. Both referential and sequential montages were used for recording. Background activity is about 7-8 Hz and 30 microvolt. The patient became drowsy that is associated with bilateral slowing. Photic stimulation is unremarkable. IMPRESSION: This is an abnormal EEG because it is slow on both sides. That can occur with dementia, encephalopathy. That is a nonspecific finding which can also occur with effect of psychotropic medication, drowsiness. No epileptiform activity, which can correlate with the patient's blinking of the eyes was noticed. Thank you very much for this referral. <ELECTRONICALLY SIGNED> By: Thien Howell MD 03/04/21 [id number] Thien Howell MD /nt
== END 2021-03-02 09:45 | DRG 682 ==
LOC: ICU 12:49 → 2N 12:49 → ICU 02-08 07:19 → 4S 02-10 05:10 → 2N 02-14 20:34 → 4W 02-24 13:07
PROVIDERS: Hospitalist; Internal Medicine; Nurse Practitioner; Nurse Practitioner Family; Specialist; ADMIT Internal Medicine; ATTEND Internal Medicine
PROC: 009U3ZX Drainage of Spinal Canal, Percutaneous Approach, Diagnostic (ICD-10-PCS; principal; 2021-02-16)
PROC: B01B1ZZ Fluoroscopy of Spinal Cord using Low Osmolar Contrast (ICD-10-PCS; principal; 2021-02-16)
DX: N17.0 Acute kidney failure with tubular necrosis (principal); G92.8 Other toxic encephalopathy; E87.1 Hypo-osmolality and hyponatremia; F23 Brief psychotic disorder; F05 Delirium due to known physiological condition; F25.9 Schizoaffective disorder, unspecified; R29.6 Repeated falls; N18.30 Chronic kidney disease, stage 3 unspecified; N40.1 Benign prostatic hyperplasia with lower urinary tract symptoms; R33.8 Other retention of urine; F17.210 Nicotine dependence, cigarettes, uncomplicated; F31.9 Bipolar disorder, unspecified; K59.00 Constipation, unspecified; I12.9 Hypertensive chronic kidney disease with stage 1 through stage 4 chronic kidney disease, or unspecified chronic kidney disease; R13.10 Dysphagia, unspecified; I48.91 Unspecified atrial fibrillation; E87.6 Hypokalemia; Z20.822 Contact with and (suspected) exposure to COVID-19; Z85.068 Personal history of other malignant neoplasm of small intestine; Z88.8 Allergy status to other drugs, medicaments and biological substances; Z79.899 Other long term (current) drug therapy
CPT/HCPCS: 10045; 10078; 10081; 10194; 10195; 10196